=== PATIENT | female | born 1980 | race Caucasian/White ===

== ENCOUNTER 2022-01-10 08:20 | Observation (INO) | payer MEDICAID ==
[2022-01-03 11:21] LABS: PRE OP PROTIME 10.5 SECONDS (9.0-12.0)
[2022-01-03 11:22] LABS: CLARITY,URINE CLEAR (Clear); COLOR,URINE YELLOW (Yellow); GLUCOSE, URINE NEGATIVE (Neg); KETONES,URINE NEGATIVE (Neg); LEUKOCYTE ESTERASE ,URINE NEGATIVE (Neg); NITRITES, URINE NEGATIVE (Neg); OCCULT BLOOD,URINE NEGATIVE (Neg); PROTEIN,URINE NEGATIVE (Neg); UA COLLECTION TYPE CLN CATCH MIDSTREAM; UROBILINOGEN,URINE 0.2 E.U/dL (0.2-1.0)
[2022-01-03 11:25] LABS: BASOPHILS # (AUTO) 0.1 X10'3 (0-0.2); BASOPHILS % (AUTO) 0.8 % (0-1); EOSINOPHILS # (AUTO) 0.2 X10'3 (0-0.9); EOSINOPHILS % (AUTO) 2.1 % (0-6); HCG SERUM QL NEGATIVE; LYMPHOCYTES # (AUTO) 2.3 X10'3 (1.1-4.8); MEAN CORPUSCULAR HEMOGLOBIN 31.1 PG (27.0-31.0); MEAN CORPUSCULAR VOLUME 91.3 FL (78-98); MEAN PLATELET VOLUME 8.1 FL (7.4-10.4); MONOCYTES # (AUTO) 0.7 X10'3 (0-0.9); MONOCYTES % (AUTO) 7.8 % (2-12); NEUTROPHILS # (AUTO) 5.5 X10'3 (1.8-7.7); NEUTROPHILS % (AUTO) 63.3 % (42-75); PRE OP HEMOGLOBIN 13.9 g/dL (12.0-16.0); PRE OP PLATELET COUNT 279 X10'3 (140-440); RED BLOOD COUNT 4.48 X10'6 (4.20-5.60); RED CELL DISTRIBUTION WIDTH 12.8 % (11.5-14.5)
[2022-01-03 11:35] LABS: ALBUMIN 3.8 G/DL (3.4-5.0); ALBUMIN/GLOBULIN RATIO 1.3 (1.1-1.5); ALKALINE PHOSPHATASE 79 IU/L (46-116); BLOOD UREA NITROGEN 14 MG/DL (7-18); BUN/CREATININE RATIO 16.5 (6.6-38.0); CALCIUM 8.8 MG/DL (8.5-10.1); CHLORIDE 107 MMOL/L (99-107); CREATININE 0.85 MG/DL (0.40-0.90); PRE OP ALT 38 U/L (30-65); PRE OP ANION GAP 10 (8-16); PRE OP AST 25 U/L (10-37); PRE OP BILIRUB, TOTAL 0.4 MG/DL (0.0-1.0); PRE OP GLUCOSE 91 MG/DL (70-104); PRE OP POTASSIUM 4.4 MMOL/L (3.4-5.1); PRE OP SODIUM 145 MMOL/L (135-145); TOTAL CARBON DIOXIDE 28.1 MMOL/L (24-32); TOTAL PROTEIN 6.8 G/DL (6.4-8.2); eGFR 74 ML/MIN
[~2022-01-10] VITALS: Ht 162.6 cm; Wt 84.0 kg
[2022-01-10] VITALS (30 sets, daily range): BP systolic 119–189; BP diastolic 66–103
[~2022-01-10 08:20] MED LIST: ALPR1TAB7 PO; APIX5TAB3 PO; DOCU-22 PO; ESCI20TA39 PO; GENTAMICIN IV ONE; HYDR-3972 PO; NORMAL SALINE IV ONE; clindamycin-Cleocin 900mg/D5W 50 ML IV ONE; famotidine 20mg tablet PO ONE; ringers solution, lacted 1,000 ML IV SCH
[2022-01-10] MEDS ORDERED: fentaNYL/PF 50MCG/1 ML 2ML syringe IV PRN (10:05)
[2022-01-10] MEDS ORDERED: ringers solution, lacted 1,000 ML IV SCH ×2 (10:05→13:30)
[2022-01-10] MEDS ORDERED: hydrALAZINE 20mg/ml inj. IV PRN (10:05)
[2022-01-10] MEDS ORDERED: ondansetron/PF 4mg/2ml inj IV PRN ×2 (10:05→13:30)
[2022-01-10] MEDS ORDERED: labetalol 20mg/4ml (5mg/ml) syringe IV PRN (10:05)
[2022-01-10] MEDS ORDERED: epiNEPHrine 1 mg/ml inj ONE (10:34)
[2022-01-10] MEDS ORDERED: neomy sulf/polymyxin B sulf. GU irrigation 1ml amp IR ONE (10:35)
[2022-01-10] MEDS ORDERED: BUPIVAcaine 0.5% inj/PF 60 ML ONE (10:35)
[2022-01-10] MEDS ORDERED: vasoPRESSIN 20 units/ml inj. ONE (10:36)
[2022-01-10] MEDS ORDERED: clindamycin phosphate 40gm vag cream ONE (10:37)
[2022-01-10] MEDS ORDERED: fentaNYL/PF 50MCG/1 ML 2ML syringe ONE ×2 (11:17→12:58)
[2022-01-10] MEDS ORDERED: midazolam 1 mg/ML 2ml injection ONE (11:17)
[2022-01-10] MEDS ORDERED: propofol inj 20 ML IV ONE (11:18)
[2022-01-10] MEDS ORDERED: glycopyrrolate 0.2mg/ml inj ONE (11:18)
[2022-01-10] MEDS ORDERED: ondansetron/PF 4mg/2ml inj ONE (11:18)
[2022-01-10] MEDS ORDERED: LIDOcaine 2% (20mg/ml) 5ml vial ONE (11:18)
[2022-01-10] MEDS ORDERED: rocuronium 10mg/ml inj IV ONE ×2 (11:18→11:23)
[2022-01-10] MEDS ORDERED: dexamethasone sod phosphate 4mg/ml inj. ONE (11:18)
[2022-01-10] MEDS ORDERED: neostigmine methylsulfate 1 MG/ML 10ml vial ONE (11:18)
[2022-01-10] MEDS ORDERED: sevoflurane 250ml liquid IH ONE (11:23)
[2022-01-10] MEDS ORDERED: ketorolac trometh. 30mg/ml inj. ONE (12:43)
[2022-01-10] MEDS ORDERED: BUPIVAcaine 0.5% inj/PF 30 ml vial IJ ONE (12:48)
[2022-01-10] MEDS ORDERED: metoclopramide 5 mg/ml inj IV PRN (13:30)
[2022-01-10] MEDS ORDERED: HYDROcodone/acetaminophen 5mg/325mg tablet PO PRN ×2 (13:30)
--- NOTE | 2022-01-10 13:44 | NUR ---
Received from OR via BED, accompanied by Anesthesiologist DR HOFFMAN and report given by Anesthesiologist AND SENIOR CARE PROVIDER. PT DROWSY, PAINFUL, ABDOMEN W/3 LAP SITES W/DERMABOND CDI. DENNEY CATHETER TO GRAVITY DRAINAGE W/YELLOW URINE IN DRAINAGE BAG. PTS BILAT ARMS AND TRUNK NOTED TO BE MOTTLED, DR HOFFMAN AWARE, STATES CAN HAPPEN AFTER RECEIVING NEOSTIGMINE. WILL MONITOR. Addendum: 01/10/22 at 1406 by Matilde Saucedo RN Amended: Links added.
[2022-01-10] MEDS: morphine 4 MG/ML inj SYRINge IV PRN ×2 (13:51→14:17)
--- NOTE | 2022-01-10 14:35 | NUR ---
300 ML NORMAL SALINE INSTILLED INTO PTS DENNEY CATHETER W/ASEPTIC TECHNIQUE, DENNEY CATHETER BALLOON ASPIRATED AND DEFLATED. PT TOLERATED WELL. Addendum: 01/10/22 at 1724 by Matilde Saucedo RN Amended: Links added.
[2022-01-10] MEDS: fentaNYL/PF 50MCG/1 ML 2ML syringe IV PRN ×2 (14:57→16:13)
[2022-01-10] MEDS: morphine 2 MG/ML inj. syringe IV PRN ×2 (15:43→16:56)
[2022-01-10] MEDS ORDERED: ketorolac tromethamine 15mg/ml inj. IV ONE (15:55)
[2022-01-10] MEDS ORDERED: acetaminophen 1,000mg/100ml IV 100 ML IV ONE (15:55)
[2022-01-10] MEDS ORDERED: ketorolac trometh. 30mg/ml inj. IV ONE (16:10)
--- NOTE | 2022-01-10 17:14 | NUR ---
PT C/O PAIN, 2 MG MORPHINE GIVEN. Report called to receiving nurse. Transferred via BED W/1 BAG OF PERSONAL BELONGINGS, RECEIVING RN AT BEDSIDE TO RECEIVE PT, SIDE RAILS UP X 3, CALL LIGHT GIVEN, BLL. Special Issues communicated to receiving nurse. YES. Addendum: 01/10/22 at 1724 by Matilde Saucedo RN Amended: Links added.
--- NOTE | 2022-01-10 18:24 | NUR ---
Gave report to José Manuel SNYDER.
--- NOTE | 2022-01-10 20:19 | NUR ---
Patient in room [facility]. I have received report from CLAUDIO Bradford and had the opportunity to ask questions and assume patient care.
[2022-01-10] MEDS: apixaban 5mg tablet PO SCH (20:42)
[2022-01-10] MEDS: docusate sod 100mg capsule PO SCH (20:42)
[2022-01-10] MEDS ORDERED: ALPRAZolam 0.5mg tablet PO PRN (21:00)
[2022-01-10] MEDS: HYDROcodone/acetaminophen 10/325mg tab PO SCH (21:43)
[2022-01-11 00:19] VITALS: BP 121/71
--- NOTE | 2022-01-11 03:00 | NUR ---
Patient has exceeded her Tylenol limit. Dr Moses paged for alternate pain medication order. Awaiting call back. Warm pack given to help alleviate discomfort.
[2022-01-11 04:00] VITALS: BP 130/71
--- NOTE | 2022-01-11 06:35 | NUR ---
I agree with Ave's documentation, assessments, Report given to Ara RN
--- NOTE | 2022-01-11 06:48 | NUR ---
Problems reprioritized. Patient report given, questions answered & plan of care reviewed with CLAUDIO Bullock.
--- NOTE | 2022-01-11 07:28 | NUR ---
Patient in room [facility]. I have received report from Sherita SNYDER traveler and had the opportunity to ask questions and assume patient care.
[2022-01-11] MEDS ORDERED: ESCITALOPRAM OXALATE 5 MG TABLET PO SCH (08:00)
[2022-01-11] MEDS: apixaban 5mg tablet PO SCH (08:01)
[2022-01-11] MEDS: docusate sod 100mg capsule PO SCH (08:01)
[2022-01-11] MEDS: HYDROcodone/acetaminophen 10/325mg tab PO SCH (08:01)
--- NOTE | 2022-01-11 09:45 | NUR ---
Pt is A & O x4 and in no apparent distress. pt verbalizes understanding of all DC orders and knows the importance of following up with Dr Carrasquillo. Pt already got medications from Dr carrasquillo so none were given at DC. Pt's IV DC'ed intact. Pt refused wheelchair and wanted to walk to the front where her took her home.
== END 2022-01-11 09:45 | disposition home or self-care (01) ==
LOC: PAS 08:20 → SUR 3N 13:35
PROVIDERS: ADMIT Obstetrics & Gynecology Obstetrics; ATTEND Obstetrics & Gynecology Obstetrics
DX: N92.1 Excessive and frequent menstruation with irregular cycle (principal); Z20.822 Contact with and (suspected) exposure to COVID-19; N94.6 Dysmenorrhea, unspecified; K66.0 Peritoneal adhesions (postprocedural) (postinfection); G89.18 Other acute postprocedural pain; F41.8 Other specified anxiety disorders; F17.210 Nicotine dependence, cigarettes, uncomplicated; Z79.899 Other long term (current) drug therapy
CPT/HCPCS: 36415; 58552; 71046; 80053; 81003; 82948; 84703; 85025; 85610; 85730; 86885; 86900; 86901; 87635; 93005; 96365; 96375; 96376; C9803; G0378; J0131; J0171; J1100; J1580; J1885; J2250; J2270; J2405; J2704; J2710; J3010; J3490; J7120; S0020; U0003; U0005; A4314; A4618; A7000